=== PATIENT | female | born 1975 | race Caucasian/White ===

== ENCOUNTER 2017-01-01 09:48 | Emergency (ER) | payer MEDICAID ==
[2017-01-01] MEDS ORDERED: SODIUM CHLORIDE 0.9% 500 ML ONE (10:36)
[2017-01-01 10:42] LABS: ABSOLUTE NEUTROPHIL COUNT 4.7 K/mm3 (1.8-7.7); BASO # 0.1 K/mm3 (0.0-0.2); EOS # 0.4 (0.0-0.5); EOS % 3.8 % (0.9-2.9); HEMATOCRIT 43.9 % (37.0-47.0); HEMOGLOBIN 14.3 gm/l (12.0-16.0); IMM NEUT% 0.2 % (0-1); LYMPH # 3.7 (1.0-4.8); LYMPH % 35.2 % (15-45); MEAN CELL VOLUME 93.4 fl (81.0-99.0); MEAN CORPUSCULAR HEMOGLOBIN 30.4 pg (27.0-31.0); MEAN CORPUSCULAR HGB CONC 32.6 g/dl (33.0-37.0); MEAN PLATELET VOLUME 11.8 fl (7.4-10.4); MONO # 1.6 (0.0-0.8); MONO % 14.9 % (4-12); NEUT % 44.9 % (43-75); PLATELET COUNT 252 K/mm3 (130-400); RED CELL DISTRIBUTION WIDTH 14.5 % (11.5-14.5)
[2017-01-01 11:01] LABS: D-DIMER 0.22 mg/L FEU (0.20-0.50); INR 1.05
[2017-01-01 11:25] LABS: TROPONIN I < 0.01 ng/ml (0.0-0.06)
[2017-01-01 11:28] LABS: CKMB ISOENZYME 0.5 ng/ml (0.6-6.3)
[2017-01-01 11:33] LABS: ALB/GLOB RATIO 0.9 (>1.0); ALBUMIN 3.5 gm/dL (3.5-5.7); CALCIUM 9.8 mg/dL (8.6-10.3); MAGNESIUM 1.4 mg/dL (1.9-2.7)
[2017-01-01] MEDS ORDERED: MORPHINE SULFATE 4 MG/ML SYRINGE ONE (11:37)
[2017-01-01] MEDS ORDERED: ACETAMINOPHEN 500 MG TABLET ONE (12:09)
--- NOTE | 2017-01-01 13:03 | RAD ---
CHEST - 2 VIEWS COMPARISON: Chest 2 views, 10/05/2015 HISTORY: Chest pain since this morning. FINDINGS: Views: Frontal and lateral chest Lungs: Normal Heart and vessels: No change. Enlarged azygous vein. Trachea and bronchi: Normal Mediastinum and mercedes: Normal Costophrenic sulci: Normal Chest wall and bones: No acute finding. Degenerative changes. Upper abdomen: No change. Calcifications in the left upper quadrant. IMPRESSION: No acute finding. Chronically enlarged azygos vein. Calcifications in the left upper quadrant.
== END 2017-01-01 12:51 | disposition home or self-care (01) ==
LOC: ED 09:48
DX: R07.9 Chest pain, unspecified (principal); R06.02 Shortness of breath; I48.91 Unspecified atrial fibrillation; K21.9 Gastro-esophageal reflux disease without esophagitis; I12.9 Hypertensive chronic kidney disease with stage 1 through stage 4 chronic kidney disease, or unspecified chronic kidney disease; N18.9 Chronic kidney disease, unspecified; Z94.0 Kidney transplant status; Z79.01 Long term (current) use of anticoagulants; Z86.718 Personal history of other venous thrombosis and embolism